=== PATIENT | female | born 2000 | race Caucasian/White ===

== ENCOUNTER → 2022-06-17 09:22 | Outpatient (CLI) | payer OTHER, SELFPAY | PROVIDERS: Visit Provider Nurse Practitioner Family | DX: R10.30 Lower abdominal pain, unspecified (principal) | CPT/HCPCS: 87086; 87210 ==

== ENCOUNTER → 2022-06-17 09:36 | Outpatient (CLI) | payer OTHER, SELFPAY ==
--- NOTE | 2022-06-17 10:13 | DI.US.S_ITS ---
PROCEDURE: US PELVIC COMPLETE INDICATIONS: CHECK IUD PLACEMENT TECHNIQUE: Real-time scanning was performed of the pelvic organs, with image documentation. Additional endovaginal scanning was necessary due to incomplete visualization of the adnexal and endometrial structures by transabdominal scanning. COMPARISON: None. FINDINGS: Uterus: Uterus is normal in size at 7.2 x 4.2 x 2.8 cm. The myometrium is homogeneous. The endometrium measures 3.2 mm combined thickness. An IUD is in place within the uterus. Ovaries: The right ovary measures 3.0 x 1.5 x 1.5 cm, with a calculated ovarian volume of 3.5 cc. The left ovary measures 3.1 x 3.0 x 1.9 cm, with a calculated ovarian volume of 9.2 cc. The ovaries have a normal sonographic appearance. Less than 12 follicles can be seen in each ovary. No adnexal masses are seen. There is a dominant follicle on the left measuring 1.4 centimeters in maximal dimension. Other: No pathologic free abdominal or pelvic fluid. IMPRESSION: 1. Essentially unremarkable pelvic ultrasound. 2. IUD placed in the uterus. 3. 1.4 centimeter dominant follicle on the left. Dictated by: Zi Mcqueen M.D. on 06/17/2022 at 12:39 Approved by: Zi Mcqueen M.D. on 06/17/2022 at 12:56
== END ==
PROVIDERS: Referring Provider Nurse Practitioner Family; Visit Provider Nurse Practitioner Family
DX: Z30.431 Encounter for routine checking of intrauterine contraceptive device (principal); R10.30 Lower abdominal pain, unspecified; N93.9 Abnormal uterine and vaginal bleeding, unspecified
CPT/HCPCS: 76830; 76856; 87086; 87210

== ENCOUNTER → 2023-04-25 12:38 | Outpatient (CLI) | payer OTHER, SELFPAY ==
[2023-04-25 13:15] LABS: Appearance Urine UA CLEAR; Bilirubin Urine UA NEGATIVE (NEGATIVE); Color Urine UA YELLOW; Glucose Urine UA NEGATIVE (Negative); Ketones Urine UA NEGATIVE (NEGATIVE); Leukocyte Esterase Urine UA NEGATIVE (NEGATIVE); Nitrite Urine UA NEGATIVE (Negative); Occult Blood Urine UA TRACE-INTACT (Negative); Protein Urine UA NEGATIVE (Negative)
[2023-04-25 13:17] LABS: pH Urine UA 8.5 (4.5-8.0)
[2023-04-25 13:20] LABS: Pregnancy Test Urine Negative (Negative)
[2023-04-25 13:25] LABS: Bacteria Urine Occasional (0-1); Culture Indicated Urine Cult Not Indicated; RBC Urine 0-1/HPF (0-5/HPF); Squamous Epithelial Cell Urine 0-1 /HPF (0-5/HPF); WBC Urine 0-1/HPF (0-5/HPF)
== END ==
PROVIDERS: Visit Provider Registered Nurse
DX: R30.0 Dysuria (principal); R39.9 Unspecified symptoms and signs involving the genitourinary system
CPT/HCPCS: 81001; 81025